=== PATIENT | male | born 1995 | race Two or more races ===

== ENCOUNTER 2020-02-18 17:18 | Day surgery (SDC) | payer MEDICAID ==
[2020-02-18] MEDS ORDERED: Piperacillin/Tazobactam 4.5 GM in Sodium Chloride 0.9% 100 ML IV ONE (17:30)
[2020-02-18] MEDS ORDERED: Lactated Ringers 1,000 ML ONE ×2 (17:33→17:56)
[2020-02-18] MEDS ORDERED: Lactated Ringers 1,000 ML IV SCH (17:45)
--- NOTE | 2020-02-18 17:45 | PCM.PREANE ---
Preanesthetic Assessment - Procedure Proposed Procedure: Laparoscopic Appendectomy - Anesthesia/Transfusion/Family Hx Anesthesia History: Prior Anesthesia Without Reaction Family History of Anesthesia Reaction: No Transfusion History: No Prior Transfusion(s) Intubation History: Unknown - Review of Systems General: No Symptoms, Fatigue Pulmonary: No Symptoms (Smoker: 1pack per 4 days/7 years, ETOH rarely, no street drugs) Cardiovascular: No Symptoms, Lightheadedness (positonal changes on occasion) Gastrointestinal: No Symptoms (occasional GERD), Abdominal Pain (2/10), Constipation, Decreased Appetite Neurological: No Symptoms Other: Reports: None, Easy Bruising, Depression (seasonal depression not treated) - Physical Assessment NPO Status Date: 02/18/20 NPO Status Time: 15:00 (water) Vital Signs: Last Vital Signs Temp 36.6 C 02/18/20 17:27 Pulse 93 02/18/20 17:27 Resp 18 02/18/20 17:27 BP 118/76 02/18/20 17:27 Pulse Ox 99 02/18/20 17:27 Height: 1.8 m Weight: 132.903 kg ASA Class: 3E Mental Status: Alert & Oriented x3 Airway Class: Mallampati = 2 Dentition: Reports: Normal Dentition, Caries Thyro-Mental Finger Breadths: 3 Mouth Opening Finger Breadths: 3 ROM/Head Extension: Full Lungs: Clear to Auscultation, Normal Respiratory Effort Cardiovascular: Regular Rate, Regular Rhythm, No Murmurs - Lab Values: Labs reviewed and noted and within acceptable ranges to proceed with procedure. - Allergies Allergies/Adverse Reactions: Allergies Allergy/AdvReac Type Severity Reaction Status Date / Time No Known Allergies Allergy Verified 02/18/20 17:29 - Anesthesia Plan Pre-Op Medication Ordered: None - Acknowledgements Anesthesia Type Planned: General Anesthesia Pt an Appropriate Candidate for the Planned Anesthesia: Yes Alternatives and Risks of Anesthesia Discussed w Pt/Guardian: Yes Pt/Guardian Understands and Agrees with Anesthesia Plan: Yes PreAnesthesia Questionnaire - Past Health History Medical/Surgical History: Denies Medical/Surgical History - Infectious Disease History Infectious Disease History: Reports: Chicken Pox - SUBSTANCE USE Tobacco Use Status *Q: Current Every Day Tobacco User Recreational Drug Use History: No - HOME MEDS Home Medications: Home Meds . [No Known Home Meds] 02/18/20 [History] - CURRENT (IN HOUSE) MEDS Current Meds: Current Medications Piperacillin Sod/Tazobactam (Sod 4.5 gm/ Sodium Chloride) 100 mls @ 200 mls/hr IV ONETIME ONE Stop: 02/18/20 17:59 Last Admin: 02/18/20 17:40 Dose: 200 mls/hr Documented by: Lactated Ringer's (Ringers, Lactated) 1,000 mls @ 150 mls/hr IV ASDIRECTED BENI Discontinued Medications Lactated Ringer's (Ringers, Lactated) Confirm Administered Dose 1,000 mls @ as directed .ROUTE .STK-MED ONE Stop: 02/18/20 17:34 Last Admin: 02/18/20 17:40 Dose: Not Given Documented by:
[2020-02-18] MEDS ORDERED: Lidocaine 1% 4 ML ONE (17:56)
[2020-02-18] MEDS ORDERED: Ketorolac 30 MG/ML SDV ONE (17:56)
[2020-02-18] MEDS ORDERED: Ondansetron 4 MG/2 ML SDV ONE (17:56)
[2020-02-18] MEDS ORDERED: HYDROmorphone 0.5 MG/0.5 ML Syringe ONE (17:56)
[2020-02-18] MEDS ORDERED: Dexamethasone 4 MG/ML 5 ML MDV ONE (17:56)
[2020-02-18] MEDS ORDERED: Rocuronium 50 MG/5 ML Vial ONE (17:56)
[2020-02-18] MEDS ORDERED: Succinylcholine/Sod PF 100 MG/5 ML SYRINGE IV ONE (17:56)
[2020-02-18] MEDS ORDERED: fentaNYL 250 MCG/5 ML SDV ONE (17:57)
[2020-02-18] MEDS ORDERED: Midazolam 1 MG/ML 2 ML SDV ONE (17:57)
[2020-02-18] MEDS ORDERED: Propofol 200 MG/20 ML SDV ONE (17:57)
[2020-02-18] MEDS ORDERED: Bupivacaine 0.5%/EPINEPHrine 1:200,000 50 ML MDV ONE (19:07)
--- NOTE | 2020-02-18 19:07 | PCM.HP.2 ---
H&P History of Present Illness - General Date of Service: 02/18/20 Admit Problem/Dx: Admission Diagnosis/Problem Admission Diagnosis/Problem Laparoscopic appendectomy Source of Information: Patient, Provider History Limitations: Reports: No Limitations - History of Present Illness Initial Comments - Free Text/Narative: Seen at [facility] for abdominal pain, workup including CT scan shows evidence of appendicitis. The patient has never had pain like this before and is otherwise healthy. He reports anorexia but no vomiting, diarrhea or fever. Onset of Symptoms: Reports: Today Right Lower Abdomen Pain Score (Numeric/FACES): 3 - Related Data Allergies/Adverse Reactions: Allergies Allergy/AdvReac Type Severity Reaction Status Date / Time No Known Allergies Allergy Verified 02/18/20 17:29 Home Medications: Home Meds . [No Known Home Meds] 02/18/20 [History] Past Medical History - Past Health History Medical/Surgical History: Denies Medical/Surgical History - Infectious Disease History Infectious Disease History: Reports: Chicken Pox Social & Family History - Family History Family Medical History: No Pertinent Family History - Tobacco Use Tobacco Use Status *Q: Current Every Day Tobacco User Years of Tobacco use: 7 Packs/Tins Daily: 0.3 - Caffeine Use Caffeine Use: Reports: Coffee, Energy Drinks - Recreational Drug Use Recreational Drug Use: No H&P Review of Systems - Review of Systems: Review Of Systems: See Below General: Reports: Malaise HEENT: Reports: No Symptoms Pulmonary: Reports: No Symptoms Cardiovascular: Reports: No Symptoms Gastrointestinal: Reports: Abdominal Pain, Anorexia Genitourinary: Reports: No Symptoms Musculoskeletal: Reports: No Symptoms Skin: Reports: No Symptoms Psychiatric: Reports: No Symptoms Neurological: Reports: No Symptoms Hematologic/Lymphatic: Reports: No Symptoms Immunologic: Reports: No Symptoms Exam - Exam Exam: See Below - Vital Signs Vital Signs: Last Vital Signs Temp 36.6 C 02/18/20 17:27 Pulse 93 02/18/20 17:27 Resp 18 02/18/20 17:27 BP 118/76 02/18/20 17:27 Pulse Ox 99 02/18/20 17:27 Weight: 132.903 kg - Exam General: Alert, Oriented, Cooperative HEENT: Conjunctiva Clear Neck: Supple Lungs: Clear to Auscultation, Normal Respiratory Effort Cardiovascular: Regular Rate, Regular Rhythm GI/Abdominal Exam: Soft, Other (obese with abdominal stria, focal right lwoer quadrant tenderness, no mass, rebound or guarding. ) (Male) Exam: No Hernia Rectal (Males) Exam: Deferred Extremities: Normal Inspection Skin: Warm, Dry Neuro Extensive - Mental Status: Alert, Oriented x3, Normal Mood/Affect - Patient Data Lab Results Last 24 hrs: Laboratory Results - last 24 hr 02/18/20 Range/Units 17:35 SARS-CoV-2 RNA (ARLENE) Negative (NEGATIVE) Sepsis Event Note - Evaluation Sepsis Screening Result: No Definite Risk - Focused Exam Vital Signs: Vital Signs Temp Pulse Resp BP Pulse Ox 02/18/20 17:27 36.6 C 93 18 118/76 99 Problem List Initiated/Reviewed/Updated: Yes Orders Last 24hrs: Active Orders 24 hr Category Date Time Status Patient Status [ADT] Routine ADT 02/18/20 18:58 Active Lactated Ringers [Ringers, Lactated] 1,000 ml Med 02/18/20 17:45 Active IV ASDIRECTED Schedule Procedure [COMM] Stat Oth 02/18/20 18:57 Ordered Medication Orders Lactated Ringer's (Ringers, Lactated) 1,000 mls @ 150 mls/hr IV ASDIRECTED BENI Last Admin: 02/18/20 18:18 Dose: 150 mls/hr Documented by: ANURAG Assessment/Plan Comment:: Acute appendicitis, plan for laparoscopic appendectomy
[2020-02-18] MEDS ORDERED: Ondansetron 4 MG/2 ML SDV IVPUSH PRN (19:31)
[2020-02-18] MEDS ORDERED: diphenhydrAMINE 50 MG/ML SDV IVPUSH PRN (19:31)
[2020-02-18] MEDS ORDERED: HYDROmorphone 0.5 MG/0.5 ML Syringe IVPUSH PRN (19:31)
[2020-02-18] MEDS ORDERED: fentaNYL 100 MCG/2 ML SDV IVPUSH PRN (19:31)
[2020-02-18] MEDS ORDERED: ePHEDrine 50 MG/ML SDV IVPUSH PRN (19:31)
[2020-02-18] MEDS ORDERED: Albuterol 0.083% 2.5 MG/3 ML Neb Soln NEB PRN (20:23)
[2020-02-18] MEDS ORDERED: Albuterol 6.7 GM Inhaler INH ONE (20:28)
--- NOTE | 2020-02-18 20:42 | PCM.PRNOTE ---
- Free Text/Narrative Note: Date: 02/18/2020 Operation: laparoscopic appendectomy Indication: acute appendicitis Surgeon: Jamal Dickinson MD EBL: 10 cc Antibiotic: zosyn DVT Ppx: SCD Findings: acute appendicitis without evidence of perforation Detailed Report: The patient was taken to the operating room and placed in supine position. Time out was performed, and general endotracheal anesthesia initiated. The left arm was tucked at the patient's side, and abdominal hair was clipped. The abdomen was prepped and draped in usual fashion. A Veress needle was placed at Drew's point to establish pneumoperitoneum. A 12 mm curvilinear infraumbilical incision was made, and air was aspirated with a needle on a syringe at this site. A 12 mm bladed trocar was then placed into the abdomen at this site, and a 5 mm 30 degree laparoscope was inserted. Additional 5 mm ports were placed under laparoscopic vision, one at the suprapubic area, and 1 in the left lower quadrant. With the camera coming in through the lateral 5 mm port, instruments were introduced to expose the appendix. The appendix curved superiorly off the base of the cecum and tract along the lateral aspect of the colon. The appendix was mobilized from its inflammatory attachments, and the mesoappendix was divided using the LigaSure. A window was made in the mesoappendix at the base of the appendix where it was seen coming off of the cecum. 2 loads of a 30 mm vascular stapler were used to divide the appendix flush with the cecum. There was a small amount of hemorrhage at the staple line, this was controlled with the hook monopolar device. The dissection field was suctioned thoroughly. The appendix was placed in an Endo Catch bag and removed through the umbilical port site. The fascia at the umbilical port site was closed using a laparoscopic suture passer with 0 Vicryl. Pneumoperitoneum was then released, and 5 mm ports removed. All skin incisions were closed with Vicryl suture and dressed with Dermabond. The patient tolerated the procedure well, and was extubated in the operating room prior to transfer to PACU for routine postanesthesia care.
--- NOTE | 2020-02-18 20:54 | PCM.POSTAN ---
POST ANESTHESIA ASSESSMENT - MENTAL STATUS Mental Status: Alert - VITAL SIGNS Vital Signs: Last Vital Signs Temp 98.5 02/18/202046 Pulse 104 02/18/202046 Resp 16 02/18/202046 BP 123/85 02/18/202046 Pulse Ox 95% 02/18/202046 - RESPIRATORY Respiratory Status: Respiratory Rate WNL, Airway Patent, O2 Saturation Stable, Supplemental Oxygen - CARDIOVASCULAR CV Status: Pulse Rate WNL, Blood Pressure Stable - GASTROINTESTINAL GI Status: No Symptoms - POST OP HYDRATION Hydration Status: Adequate & Stable
[2020-02-18] MEDS ORDERED: oxyCODONE 5 MG Tab PO ONE (21:11)
--- NOTE | 2020-02-18 21:13 | PCM48HPAN ---
Post Anesthesia Note - EVALUATION WITHIN 48HRS OF ANESTHETIC Vital Signs in Normal Range: Yes Patient Participated in Evaluation: Yes Respiratory Function Stable: Yes Airway Patent: Yes Cardiovascular Function Stable: Yes Hydration Status Stable: Yes Pain Control Satisfactory: Yes Nausea and Vomiting Control Satisfactory: Yes Mental Status Recovered: Yes Vital Signs: Last Vital Signs Temp 36.9 C 02/18/20 20:47 Pulse 103 H 02/18/20 21:01 Resp 27 H 02/18/20 21:01 BP 118/88 02/18/20 21:01 Pulse Ox 94 L 02/18/20 21:01
== END 2020-02-18 22:10 | disposition home or self-care (01) ==
LOC: JD.ED 17:18 → JD.SDS 19:16
PROVIDERS: ATTEND Surgery
DX: K35.33 Acute appendicitis with perforation, localized peritonitis, and gangrene, with abscess (principal); F17.210 Nicotine dependence, cigarettes, uncomplicated; Z01.812 Encounter for preprocedural laboratory examination; Z20.828 Contact with and (suspected) exposure to other viral communicable diseases
CPT/HCPCS: 44970; 87635; 94640; A9270; J0330; J1100; J1170; J2001; J2250; J2405; J2543; J2704; J2710; J3010; J3490; J7050; J7120; 00840; J1885; J2370; U0002

== ENCOUNTER 2020-11-28 18:04 | Emergency (ER) | payer MEDICAID ==
--- NOTE | 2020-11-28 20:35 | EDM.PDOC ---
ED HPI GENERAL MEDICAL PROBLEM - General Chief Complaint: General Stated Complaint: POSS COVID Time Seen by Provider: 11/28/20 19:17 Source of Information: Reports: Patient History Limitations: Reports: No Limitations - History of Present Illness INITIAL COMMENTS - FREE TEXT/NARRATIVE: 25-year-old male 25-year-old male presents the emergency department with complaints of nausea that started today. Patient is concerned he may have Covid and has children at home so he would like to be tested for Covid. Patient has no other symptoms. He denies fevers, chills, diarrhea, vomiting, loss of taste and smell, cough or shortness of breath. Patient states he is otherwise healthy and denies any past medical history Generalized Pain Score (Numeric/FACES): 3 - Related Data Allergies Allergy/AdvReac Type Severity Reaction Status Date / Time No Known Allergies Allergy Verified 11/28/20 18:45 Home Meds: Home Meds . [No Known Home Meds] 11/28/20 [History] Past Medical History - Past Health History Medical/Surgical History: Denies Medical/Surgical History HEENT History: Reports: None Cardiovascular History: Reports: None Respiratory History: Reports: None Gastrointestinal History: Reports: None Genitourinary History: Reports: None Musculoskeletal History: Reports: None Neurological History: Reports: None Psychiatric History: Reports: None Endocrine/Metabolic History: Reports: Obesity/BMI 30+ Hematologic History: Reports: None Immunologic History: Reports: None Oncologic (Cancer) History: Reports: None Dermatologic History: Reports: None - Infectious Disease History Infectious Disease History: Reports: Chicken Pox - Past Surgical History Head Surgeries/Procedures: Reports: None HEENT Surgical History: Reports: None GI Surgical History: Reports: Appendectomy Social & Family History - Family History Family Medical History: No Pertinent Family History - Caffeine Use Caffeine Use: Reports: Coffee, Energy Drinks, Soda, Tea - Recreational Drug Use Recreational Drug Use: Yes Drug Use in Last 12 Months: No Recreational Drug Type: Reports: Marijuana/Hashish Recreational Drug Use Frequency: Not Used In Over 1 Year ED ROS GENERAL - Review of Systems Review Of Systems: Comprehensive ROS is negative, except as noted in HPI. ED EXAM, GENERAL - Physical Exam Exam: See Below Exam Limited By: No Limitations General Appearance: Alert, WD/WN, No Apparent Distress Ears: Normal External Exam, Hearing Grossly Normal Nose: Normal Inspection Throat/Mouth: Normal Inspection, Normal Lips, Normal Voice, No Airway Compromise Head: Atraumatic Neck: Normal Inspection, Supple Respiratory/Chest: No Respiratory Distress, Lungs Clear, Normal Breath Sounds, No Accessory Muscle Use, Chest Non-Tender Cardiovascular: Normal Peripheral Pulses, Regular Rate, Rhythm, No Edema, No Murmur GI/Abdominal: Normal Bowel Sounds, Soft, Non-Tender, No Distention (Male) Exam: Deferred Rectal (Males) Exam: Deferred Back Exam: Normal Inspection, Full Range of Motion Extremities: Normal Inspection, Normal Range of Motion, Non-Tender, No Pedal Edema, Normal Capillary Refill Neurological: Alert, Oriented, Normal Cognition Psychiatric: Normal Affect Skin Exam: Warm, Dry, Intact, Normal Color, No Rash Lymphatic: No Adenopathy Course - Vital Signs Text/Narrative:: Dated above patient presents with nausea that started today. He is worried he may have Covid symptoms and would like to be tested for Covid. Assessment is otherwise unremarkable at this time. Last Recorded V/S: Last Vital Signs Temp 97.8 F 11/28/20 18:49 Pulse 75 11/28/20 18:49 Resp 18 11/28/20 18:49 BP 132/88 11/28/20 18:49 Pulse Ox 99 11/28/20 18:49 - Orders/Labs/Meds Labs: Laboratory Tests 11/28/20 Range/Units 19:15 SARS-CoV-2 RNA (ARLENE) Negative (NEGATIVE) - Re-Assessments/Exams Free Text/Narrative Re-Assessment/Exam: 11/28/20 20:34 Patient is Covid negative. He will be discharged home Departure - Departure Time of Disposition: 20:35 Disposition: Home, Self-Care 01 Condition: Good Clinical Impression: Nausea - Discharge Information Referrals: PCP,None [Primary Care Provider] - Additional Instructions: You were seen in the emergency department today with complaints of nausea. You requested a Covid swab and this was negative. Go home and rest, try and drink plenty of fluids. Follow-up with your primary care provider if you are not better in a few days. Sepsis Event Note (ED) - Evaluation Sepsis Screening Result: No Definite Risk - Focused Exam Vital Signs: Vital Signs Temp Pulse Resp BP Pulse Ox 11/28/20 18:49 97.8 F 75 18 132/88 99 11/28/20 18:47 97.8 F 75 18 132/88 98
== END 2020-11-28 20:44 | disposition home or self-care (01) ==
LOC: JD.ED 18:04
DX: R11.0 Nausea (principal); E66.9 Obesity, unspecified; Z68.39 Body mass index [BMI] 39.0-39.9, adult; Z20.822 Contact with and (suspected) exposure to COVID-19
CPT/HCPCS: 99282; 99283; U0002